=== PATIENT | female | born 1975 ===

== ENCOUNTER 2017-08-28 17:23 | Emergency (ER) | payer MEDICAID ==
[2017-08-28 17:43] VITALS: BMI 24.7
[2017-08-28 17:46] VITALS: BP 134/87; PULSE 78; RESP 18; TEMP 97.6; O2SAT 99
--- NOTE | 2017-08-28 18:01 | C.PDOC ---
History Of Present Illness Pt c/o right low back pain radiating down RLE. Time Seen by Provider: 08/28/17 17:59 Chief Complaint (Nursing): Back Pain History Per: Patient Onset/Duration Of Symptoms: Other (Chronic) Current Symptoms Are (Timing): Still Present Quality Of Discomfort: "Pain" Severity: Moderate Previous Symptoms: Back Pain, Chronic Pain Associated Symptoms: None. denies: Incontinence, New Weakness, New Numbness Exacerbating Factor(s): Movement Additional History Per: Prior Records Past Medical History Reviewed: Historical Data, Nursing Documentation, Vital Signs Vital Signs: Last Vital Signs Temp 97.6 F 08/28/17 17:43 Pulse 78 08/28/17 17:43 Resp 18 08/28/17 17:43 BP 134/87 08/28/17 17:43 Pulse Ox 99 08/28/17 18:28 - Medical History PMH: Back Problems Surgical History: No Surg Hx Family History: States: Unknown Family Hx - Social History Hx Alcohol Use: No Hx Substance Use: No - Immunization History Hx Tetanus Toxoid Vaccination: No Hx Influenza Vaccination: Yes Hx Pneumococcal Vaccination: No Review Of Systems Except As Marked, All Systems Reviewed And Found Negative. Constitutional: Negative for: Fever ENT: Positive for: Nose Congestion Cardiovascular: Negative for: Chest Pain Respiratory: Positive for: Cough (few days). Negative for: Shortness of Breath Gastrointestinal: Negative for: Vomiting, Abdominal Pain Genitourinary: Negative for: Dysuria, Incontinence, Hematuria Musculoskeletal: Positive for: Back Pain. Negative for: Neck Pain Skin: Negative for: Rash Neurological: Negative for: Weakness, Numbness Physical Exam - Physical Exam Appears: Non-toxic, No Acute Distress Skin: Normal Color, Warm, Dry, No Rash Head: Atraumatic, Normacephalic Eye(s): bilateral: Normal Inspection, PERRL, EOMI Neck: Normal ROM, Supple Cardiovascular: Rhythm Regular Respiratory: Normal Breath Sounds, No Accessory Muscle Use Gastrointestinal/Abdominal: Soft, No Tenderness Back: No CVA Tenderness, No Vertebral Tenderness, Paraspinal Tenderness (right lower) Extremity: Normal ROM, No Pedal Edema, No Calf Tenderness Neurological/Psych: Oriented x3, Normal Motor, Normal Sensation ED Course And Treatment O2 Sat by Pulse Oximetry: 99 Pulse Ox Interpretation: Normal Reassessment Condition: Improved Disposition Counseled Patient/Family Regarding: Diagnosis, Need For Followup, Rx Given - Disposition Referrals: Jerome Reyez MD [Medical Doctor] - Gloria Whatley MD [Medical Doctor] - Disposition: HOME/ ROUTINE Disposition Time: 18:44 Condition: IMPROVED Additional Instructions: Follow up with your doctor for further evaluation and treatment. Return to the ER if you develop abdominal pain, trouble urinating, weakness, numbness, worsening of symptoms or if you have any other concerns. Prescriptions: Cyclobenzaprine [Cyclobenzaprine HCl] 10 mg PO TID PRN #15 tab PRN Reason: Muscle Spasm Lidocaine 5% [Lidoderm] 1 patch TOP DAILY PRN #30 patch PRN Reason: Pain, Moderate (4-7) Naproxen [Naprosyn] 1 tab PO BID PRN #30 tab PRN Reason: Pain predniSONE [predniSONE Tab] 2 tab PO DAILY #8 tab Instructions: Chronic Back Pain (ED) Forms: [facility] ([place]ijani) - Clinical Impression Clinical Impression: Chronic right-sided low back pain
[2017-08-28] MEDS ORDERED: Lidocaine 5% Patch TD STA (18:08)
[2017-08-28] MEDS ORDERED: Lidocaine 5% Patch TD ONE (18:18)
== END 2017-08-28 18:53 | disposition home or self-care (01) ==
LOC: C.ER 17:23
DX: G89.29 Other chronic pain (principal); M54.5 Low back pain
CPT/HCPCS: 96372; 99284; J1885